=== PATIENT | female | born 1955 | race Caucasian/White ===

== ENCOUNTER → 2019-02-05 | Outpatient (CLI) | payer BC ==
[2019-02-05 13:21] LABS: HCT 41.1 % (34.0-46.0); HGB 13.5 gm/dL (11.4-16.0); MCH 31.2 pg (25.0-35.0); MCHC 32.9 g/dL (31.0-37.0); MCV 94.7 fL (80.0-100.0); Mean Platelet Volume 6.6; Platelet Count 336 k/uL (150-450); RBC 4.34 m/uL (3.80-5.40); RDW 12.8 % (11.5-15.5); WBC 6.5 k/uL (3.8-10.6)
[2019-02-05 13:26] LABS: Albumin 4.2 g/dL (3.5-5.0); Appearance,Urine Cloudy (Clear); Bacteria,Urine Rare /hpf; Bilirubin,Urine Negative (Negative); Blood,Urine Negative (Negative); Calcium 10.2 mg/dL (8.4-10.2); Color,Urine Yellow; Glucose,Urine (UA) Negative (Negative); Hyaline Casts,Urine 28 /lpf (0-2); Ketones,Urine Negative (Negative); Leukocyte Esterase,Urine Negative (Negative); Mucus,Urine Occasional /hpf; Nitrite,Urine Negative (Negative); Potassium 4.1 mmol/L (3.5-5.1); Protein,Urine Negative (Negative); RBC,Urine 1 /hpf (0-5); Specific Gravity,Urine 1.022 (1.001-1.035); Squamous Epithelial Cell,Urine 7 /hpf (0-4); Total Bilirubin 0.6 mg/dL (0.2-1.3); Total Protein 7.1 g/dL (6.3-8.2); Urobilinogen,Urine <2.0 mg/dL (<2.0); WBC,Urine 1 /hpf (0-5)
[2019-02-05 13:27] LABS: INR 0.9 (<1.2); Partial Thromboplastin Time 24.1 sec (22.0-30.0); Prothrombin Time 9.7 sec (9.0-12.0)
== END | disposition home or self-care (01) ==
LOC: LABWHC1 11:58
PROVIDERS: ATTEND Orthopaedic Surgery Sports Medicine
DX: Z01.812 Encounter for preprocedural laboratory examination (principal); M17.12 Unilateral primary osteoarthritis, left knee
CPT/HCPCS: 36415; 80053; 81001; 85027; 85610; 85730; 87070

== ENCOUNTER 2019-02-14 13:24 | Day surgery (SDC) | payer BC ==
[2019-02-06 15:15] VITALS: BMI 35.7
[~2019-02-14 13:24] MED LIST: ACETAMINOPHEN TAB 500 MG TAB PO ONE; HYDROmorphone 0.5 MG/0.5 ML SYRINGE IVP PRN; LIDOCAINE 1% 20 ML VIAL (10MG/ML) FOR IV START INTRADERMA PRN; ONDANSETRON 4 MG/2 ML VIAL IVP ONE; ROPIVACAINE 246.25 MG, EPINEPHrine 0.5 MG, KETOROLAC 30 MG, cloNIDine HCL/PF 80 MCG, WA... MISCELLANE ONE; TRANEXAMIC ACID 1,000 MG in SODIUM CHLORIDE 0.9% 100 ML IVPB ONE
[2019-02-14] MEDS ORDERED: LIDOCAINE 1% 20 ML VIAL (10MG/ML) FOR IV START INTRADERMA ONE (14:16)
[2019-02-14] MEDS: LACTATED RINGERS 1,000 ML IV SCH (14:16)
[2019-02-14] MEDS ORDERED: SCOPOLAMINE 1.5MG/72HR PATCH TRANSDERM ONE (14:23)
[2019-02-14] MEDS ORDERED: MORPHINE SULFATE (PF) 0.3 MG/0.3 ML SYR ONE (15:07)
[2019-02-14] MEDS ORDERED: PROPOFOL 10 MG/ML 20 ML VIAL IV ONE (15:07)
[2019-02-14] MEDS ORDERED: fentaNYL (PF) 50 MCG/ML 2 ML AMP ONE (15:07)
[2019-02-14] MEDS ORDERED: LIDOCAINE 1% INJ 10MG/ML (20 ML MDV) ONE (15:07)
[2019-02-14] MEDS ORDERED: MIDAZOLAM 2 MG/2 ML VIAL ONE (15:07)
[2019-02-14] MEDS ORDERED: KETAMINE 10 MG/ML 20 ML VIAL ONE (15:07)
[2019-02-14] MEDS ORDERED: hydrOXYzine PAMOATE 25 MG CAP PO PRN (15:20)
[2019-02-14] MEDS ORDERED: MAGNESIUM HYDROXIDE 2,400 MG/10 ML CUP PO PRN (15:20)
[2019-02-14] MEDS ORDERED: HYDROcodone/APAP 10-325MG 1 EACH TAB PO PRN (15:20)
[2019-02-14] MEDS ORDERED: HYDROmorphone 0.5 MG/0.5 ML SYRINGE IVP PRN ×2 (15:20)
[2019-02-14] MEDS ORDERED: NALOXONE 0.4 MG/ML 1 ML VIAL IV PRN (15:20)
[2019-02-14] MEDS ORDERED: NA PHOS,M-B/NA PHOS,DI-BA 133 ML ENEMA RECTAL PRN (15:20)
[2019-02-14] MEDS ORDERED: traMADol 50 MG TAB PO PRN (15:20)
[2019-02-14] MEDS ORDERED: ONDANSETRON 4 MG/2 ML VIAL IVP PRN (15:20)
[2019-02-14] MEDS ORDERED: BISACODYL 10 MG SUPP RECTAL PRN (15:20)
[2019-02-14] MEDS ORDERED: TEMAZEPAM 15 MG CAP PO PRN (15:20)
[2019-02-14] MEDS ORDERED: HYDROmorphone 1 MG/ML 1 ML SYRINGE IVP PRN (15:20)
[2019-02-14] MEDS ORDERED: DIAZEPAM 5 MG TAB PO PRN (15:20)
[2019-02-14] MEDS ORDERED: HYDROcodone/APAP 5-325MG 1 EACH TAB PO PRN (15:20)
[2019-02-14] MEDS ORDERED: LACTATED RINGERS 1,000 ML IV ONE (16:04)
--- NOTE | 2019-02-14 17:21 | XR ---
EXAMINATION TYPE: XR knee limited LT DATE OF EXAM: 02/14/2019 COMPARISON: NONE HISTORY: Postop knee surgery TECHNIQUE: 2 view FINDINGS: There is a left knee prosthesis. Components are in anatomic position. IMPRESSION: No complicating process seen.
--- NOTE | 2019-02-14 20:03 | OP ---
OPERATIVE REPORT DATE OF PROCEDURE: 02/14/2019. SURGEON: Marlo Jackson MD. COMMODITY DIRECTOR: Abel MONTGOMERY. PREOPERATIVE DIAGNOSIS: Left knee osteoarthrosis. POSTOPERATIVE DIAGNOSIS: Left knee osteoarthrosis. OPERATION: Left total knee arthroplasty. ANESTHESIA: Spinal with sedation. ESTIMATED BLOOD LOSS: 100 mL. TOURNIQUET TIME: 28 minutes at 250 mmHg. COMPLICATIONS: None apparent. DRAINS: None. DISPOSITION: Post-Anesthesia Care Unit. INDICATIONS: Carolyne is a very pleasant 63-year-old female with longstanding history of left knee pain. History and physical examination are consist with advanced left knee osteoarthrosis. She has been through significant nonoperative management up to this point. Further treatment options were discussed and she decided to go forward with left total knee arthroplasty. The risks of the procedure were discussed with her in detail. These risks include but are not limited to risk of infection, nerve damage, bleeding, pain and risk of deep vein thrombosis which could lead to fatal pulmonary embolism. There is also risk of loosening of the implant which could require revision operation. The patient understands these risks. All of her questions were answered to her satisfaction. Appropriate informed consent was obtained. DESCRIPTION OF PROCEDURE: The patient was identified in the preoperative holding area. Surgical site was marked by both the patient and myself. She was given 2 grams of Ancef IV for prophylactic purposes. She was then transferred to the operative suite. She was placed supine on the operative table. Spinal anesthetic was then administered and dosed per the anesthesia department without apparent complication. Examination under anesthesia was then performed. The patient was 2-3 degrees shy of full extension. She had 100 degrees of flexion, and the medial collateral ligament, lateral collateral ligament and posterior cruciate ligaments were stable. Tourniquet was then placed high on the left upper thigh, well padded in preparation for surgery. The patient's left lower extremity was then prepped and draped in the usual sterile fashion. Standard surgical pause was undertaken to ensure that we were operating on the correct site and that appropriate preoperative antibiotics had been given. All staff in the room were in agreement and we proceeded. The outlines of the patella were marked with a surgical pen. A planned 12 cm vertical incision centered over the patella was marked with a surgical pen. Leg was then exsanguinated with an Esmarch dressing. The knee was then flexed and the tourniquet was inflated to 250 mmHg. The total tourniquet time for the procedure was 28 minutes. Incision was then made with a 10 blade scalpel. Dissection was carried down sharply to the overlying fascia. Great care was taken to minimize the skin flaps. The knee was then exposed using a standard medial parapatellar approach. A small cuff of quadriceps tendon was left for suturing. She was in a bit of varus preoperatively. A standard medial release was then made. Superficial medial collateral ligament was dissected off the bone around to the posterior aspect of the proximal tibia. The medial meniscus was then excised as well. The lateral meniscus was also released anteriorly. The leg was then externally rotated. The patella was everted. The knee was flexed. The retractors were then placed to protect the collateral ligaments. I then proceeded to remove the infrapatellar fat pad. This was excised sharply tangentially with the fibers of the patellar tendon. I then proceeded to remove the peripheral osteophytes. This was done with a rongeur. I then proceeded with distal femoral resection. She did have near-full extension. A planned 9 mm resection was then done. The femoral canal was then entered in the midline of the femur approximately 10 mm anterior to the origin of the posterior cruciate ligament. The josette was then advanced down the center of the femur and placed intramedullary. Based on the preoperative radiographs, the angle between the anatomic and mechanical axis of the femur was approximately 4-5 degrees. The valgus angle of the distal femoral cutting guide was then set at 4 degrees for the left knee. This femoral cutting guide was then advanced over the intramedullary josette. This was seated firmly against the femur. I then, as mentioned, planned to take 9 mm off the distal femur. The cutting block was then secured onto the femur with pins. The jig was then removed. The distal femoral cut was made through the slot of the block. The pins were then removed. The distal femoral cutting block was removed. The accuracy of the distal femoral cuts was checked with 2 flat bars. I then proceeded with femoral sizing. The posterior referencing sizing guide was held firmly against the resected distal surface of the femur. Posterior condyles were resting on the posterior plane of the guide. The sizing stylus was then placed onto the anterior femur. The size was measured as a size 7. I then assessed for femoral rotation. The plan was for 3 degrees of external rotation. Three degrees of external rotation was placed onto the jig. These holes were then marked. I then confirmed the rotation by 3 separate methods. This was done using the epicondylar axis as well as Whitesides line and posterior referencing. It was deemed that the external rotation was proper. I then went forward with placing the femoral cutting block. This was placed over the previously placed pin holes. The Ry wing was then placed onto the anterior slots to ensure that we would not notch the anterior femur with the anterior femoral cut. I then proceeded with the anterior femoral cut. This was flush with the anterior cortex of the femur. Posterior cuts were then made followed by the anterior chamfer cut, then the posterior chamfer cut. The cutting block was then removed. Throughout the resection, the collateral ligaments were protected with retractors. I then placed a trial size 7 femur. It was slightly wide but it fit very nicely and it fit flush with the distal end of the femur. The holes were then made. I then proceeded with the tibial cut. I planned for a cruciate-retaining knee. The guide was placed and set for varus, valgus and for slope. The height was set for an approximate 2 mm resection from the medial tibial plateau, which was the lower side. I was happy with the alignment and the amount of resection. The cutting block was then pinned to the proximal tibia. The alignment josette was removed. The proximal tibia was resected with a reciprocating saw. Again this was done with retractors protecting the collateral ligaments as well as the posterior cruciate ligament. I then proceeded to evaluate the flexion and extension gaps. A 10 mm block was then placed. The flexion and extension gaps were equal. I then proceeded with resection of the posterior osteophytes. She had very minimal posterior osteophytes. This was done with a curved osteotome. This resected the posterior osteophytes, and posterior capsule stripping was also done off the posterior aspect of the femur at this time. The osteophytes were then removed. I then proceeded with resection of the patella. The thickness of the patella was measured using the caliper. The thickness was 22 mm. The thickness of the anticipated patellar dome was taken into account. Resection was then performed and confirmed to be equal in 4 quadrants using a caliper. Approximately 14 mm of bone remained after the resection. A 32 x 8.5 standard patellar trial was then placed. The holes were drilled and the trial was then placed. I then proceeded with sizing the tibial plate. A size D tibial plate fit very nicely. I then placed the trial femur and the tibial tray and the patellar button. A 10 mm trial tibial insert was also placed. The components fit very nicely. She had full extension and flexion. The extension and flexion gaps were equal and stable to both varus and valgus stress. The patella tracked appropriately. Tibial tray rotation was then marked with a Bovie. This was externally rotated properly. I then proceeded with tibial preparation. I first drilled the femoral holes and removed the femoral component. Tibial tray was then set for proper external rotation as well as mediolateral placement onto the tibia. It was then pinned into place. I then proceeded with punching the keel. I then decided to proceed with cementing of all of our components. The knee was thoroughly irrigated with sterile saline solution via pulse lavage. The lateral geniculate artery was identified and cauterized. All blood was removed from the bone of the tibia, femur and patella with pulse lavage. I then proceed with cementing. Two packs of antibiotic bone cement were prepared on the back table by the neurosurgical nurse. I then proceeded with cementing the tibia first. Cement was impacted into the keel as well as deeply seated in the bone. A second coat of cement was then placed. The tibia was then impacted into place. Excess cement was removed with Cornel's and jokers. I then proceed with cementing the femoral component. The femoral component was also cemented using standard technique. Excess cement was removed. A 10 mm trial insert was then placed into the knee. It was brought into full extension with a constant axial load placed until the cement had hardened. The patellar component was then cemented. This was held firmly with a compressive device until the cement had dried. When the cement had dried, the knee was taken out of extension. All excess cement was removed from around the prosthesis. I then trialed the knee with a 10 mm insert. The flexion and extension gaps were appropriate. I then trialed with an 11 mm insert. The flexion and extension gaps felt better. The knee was stable. It came into full extension. I decided to go forward with an 11 mm cross-linked cruciate-retaining tibial insert. Polyethylene was then placed onto the tibial tray and locked into place. The knee was then reduced. The knee was again further irrigated with sterile saline solution with antibiotic added. The tourniquet was then deflated. Total tourniquet time for the procedure was 28 minutes at 250 mmHg of mercury. Final components were a Jeet Persona size 7 narrow cruciate-retaining femoral component, a size D tibial tray, an 11 mm medial-congruent cruciate-retaining polyethylene insert, and a 32 x 8.5 mm patella. I then proceeded with closure. Again the knee was thoroughly irrigated. The quadriceps tendon and the medial retinaculum were reapproximated with #2 Ethibond suture. The extensor mechanism was then closed with a running #2 Quill suture. Subcutaneous tissues were closed with 2-0 Vicryl interrupted suture. The skin was closed with a running 3-0 Quill suture. Dermabond was applied to the incision. Sterile compressive dressings were then applied. All sponge and needle counts were deemed correct prior to closure. The patient tolerated the procedure without apparent complication. She was transferred to the recovery room in stable condition. MMODL / IJN: [id number] /
[2019-02-14] MEDS: ASPIRIN 325 MG TAB PO SCH (20:20)
[2019-02-14] MEDS ORDERED: SENNOSIDES-DOCUSATE SODIUM 1 EACH TAB PO SCH (21:00)
[2019-02-14] MEDS ORDERED: LEVOTHYROXINE SODIUM 13 MCG PO SCH (23:00)
[2019-02-15 02:32] VITALS: TEMP 98.8
[2019-02-15] MEDS: LACTATED RINGERS 1,000 ML IV SCH (04:04)
[2019-02-15 07:04] LABS: Basophils % (A) 0 %; Eosinophils # (A) 0.1 k/uL (0-0.7); Eosinophils % (A) 1 %; HCT 36.7 % (34.0-46.0); HGB 11.9 gm/dL (11.4-16.0); Lymphocytes # (A) 1.1 k/uL (1.0-4.8); Lymphocytes % (A) 11 %; MCH 30.5 pg (25.0-35.0); MCHC 32.5 g/dL (31.0-37.0); MCV 93.9 fL (80.0-100.0); Mean Platelet Volume 6.7; Monocytes # (A) 0.4 k/uL (0-1.0); Monocytes % (A) 4 %; Neutrophils # (A) 8.5 k/uL (1.3-7.7); Neutrophils % (A) 83 %; Platelet Count 300 k/uL (150-450); RBC 3.91 m/uL (3.80-5.40); RDW 12.7 % (11.5-15.5); WBC 10.2 k/uL (3.8-10.6)
[2019-02-15 07:16] LABS: Calcium 8.8 mg/dL (8.4-10.2); Potassium 3.5 mmol/L (3.5-5.1)
[2019-02-15 08:13] VITALS: BP 97/53; PULSE 58; RESP 15
--- NOTE | 2019-02-15 08:15 | P.PN ---
Progress Note - Text 02/15 700am 63-year-old female status post total knee replacement by Dr. Jackson. Patient had a spinal anesthetic with Duramorph for postop pain control, patient seen this morning with a VAS of 0 no complaints of nausea vomiting . She does have complains of pruritus which is subsided by the end of the day
[2019-02-15] MEDS ORDERED: CALCIUM CARB-VIT D 500MG-200UN 1 EACH TAB PO SCH (09:00)
[2019-02-15] MEDS ORDERED: PROPRANOLOL HCL 80 MG PO SCH (09:00)
[2019-02-15] MEDS ORDERED: CYANOCOBALAMIN 500 MCG TAB PO SCH (09:00)
[2019-02-15] MEDS ORDERED: ACETAMINOPHEN TAB 325 MG TAB PO PRN (09:08)
[2019-02-15] MEDS: ASPIRIN 325 MG TAB PO SCH (09:18)
--- NOTE | 2019-02-15 09:32 | P.DS ---
Providers Expected date of discharge: 02/15/19 Attending physician: Marlo Jackson Consults: 02/14/19 15:20 Consult Physician Routine Consulting Provider: Marizol Pena Consult Reason/Comments: post op medical management Do you want consulting provider notified?: Yes Primary care physician: West Cantu - Discharge Diagnosis(es) (1) Osteoarthritis of left knee Patient was admitted to the OR on 02/14/2019 to undergo a left total knee arthroplasty. She had failed conservative measures an outpatient and desired to proceed with elective surgery after given informed consent. She underwent the above procedure which she tolerated well without complication. Postoperative hospital course has remained without complication. On day of discharge she is afebrile, vital signs stable, labs within acceptable ranges, tolerating by mouth meds and diet, voiding without difficulty, positive flatus, denies abdominal pain or calf pain, pain is controlled on oral pain medication and has no new complaints. Wound is benign, neurovascular status is intact, calf is soft and nontender, abdomen soft and nontender. Review of systems is negative for numbness, tingling, fever, chills, chest pain, shortness of breath, nausea, vomiting, dizziness, headaches, slurred speech or other. Current Visit: Yes Status: Acute Priority: Medium (2) Status post total left knee replacement Current Visit: Yes Status: Acute Priority: Medium Procedures: Left TKA Patient Condition at Discharge: Good Plan - Discharge Summary Discharge Rx Participant: Yes New Discharge Prescriptions: New Aspirin 325 mg PO BID #60 tab Docusate [Colace] 100 mg PO BID #60 capsule HYDROcodone/APAP 7.5-325MG [[place] 7.5-325] 1 - 2 each PO Q6HR PRN #56 tab PRN Reason: Pain No Action Estrogens, Conjugated [Premarin] 0.3 mg PO DAILY Diclofenac Sodium [Diclofenac Sodium ER] 100 mg PO DAILY Propranolol HCl 80 mg PO QAM Hydrochlorothiazide 25 mg PO BID Levothyroxine Sodium [Tirosint] 13 mcg PO HS Aspirin [Adult Low Dose Aspirin EC] 81 mg PO DAILY Cyanocobalamin (Vitamin B-12) [Vitamin B-12] 1,000 mcg PO DAILY Calcium Carbonate/Vitamin D3 [Calcium 500-Vit D3 200 Tablet] 1 each PO DAILY Fluticasone Nasal [place] [Flonase Nasal [place]] 1 spray EA NOSTRIL HS Discharge Medication List Aspirin [Adult Low Dose Aspirin EC] 81 mg PO DAILY 08/13/19 [History] Calcium Carbonate/Vitamin D3 [Calcium 500-Vit D3 200 Tablet] 1 each PO DAILY 02/06/19 [History] Cyanocobalamin (Vitamin B-12) [Vitamin B-12] 1,000 mcg PO DAILY 02/06/19 [History] Diclofenac Sodium [Diclofenac Sodium ER] 100 mg PO DAILY 02/06/19 [History] Estrogens, Conjugated [Premarin] 0.3 mg PO DAILY 02/06/19 [History] Fluticasone Nasal [place] [Flonase Nasal [place]] 1 spray EA NOSTRIL HS 02/06/19 [History] Hydrochlorothiazide 25 mg PO BID 02/06/19 [History] Levothyroxine Sodium [Tirosint] 13 mcg PO HS 02/06/19 [History] Propranolol HCl 80 mg PO QAM 02/06/19 [History] Aspirin 325 mg PO BID #60 tab 02/15/19 [Rx] Docusate [Colace] 100 mg PO BID #60 capsule 02/15/19 [Rx] HYDROcodone/APAP 7.5-325MG [[place] 7.5-325] 1 - 2 each PO Q6HR PRN #56 tab 02/15/19 [Rx] Follow up Appointment(s)/Referral(s): West Cantu MD [Primary Care Provider] - 1 Week Marlo Jackson MD [STAFF PHYSICIAN] - 10 Days Activity/Diet/Wound Care/Special Instructions: Keep wound clean and dry Take meds as directed Follow-up with Dr. Jackson in office Weight bear as tolerated May shower in 3 days if no bleeding Discharge Disposition: HOME WITH HOME HEALTH SERVICES
[2019-02-15] MEDS ORDERED: DOCUSATE 100 MG CAP PO STA (11:51)
[2019-02-15] MEDS ORDERED: MULTIVITAMINS, THERA 1 EACH TAB PO SCH (12:00)
--- NOTE | 2019-02-26 01:39 | P.CONS ---
History of Present Illness - Reason for Consult Consult date: 02/15/19 Medical management - Chief Complaint Left knee total arthroplasty - History of Present Illness Patient is a 63-year-old female with a known history of hypertension, hyperlipidemia, hypothyroidism, migraine headaches and osteoarthritis was admitted to the hospital for left total knee arthroplasty. Patient tolerated the procedure very well. Currently denied any complaints of left knee pain whic h is well controlled with medications. No complaints of nausea vomiting or abdominal pain. No diarrhea or dysuria. Postoperatively patient is hypotensive and blood pressure medications have been on hold. No fever no chills. No headache or dizziness or lightheadedness. Review of Systems Constitutional: Patient denies any fever or chills . No generalized weakness or weight loss. Abdomen: Patient denied nausea vomiting and diarrhea and abdominal pain. Cardiovascular: Patient denies any chest pain or short of breath no palpitations. Respiratory: patient denied any cough is from production. No shortness of breath Neurologic: Patient denied any numbness or tingling headache. Musculoskeletal: Patient denies any complaints of joint swelling or deformity. Skin: Negative Psychiatric: Negative Endocrine: No heat or cold intolerance. No recent weight gain. Genitourinary: No dysuria or hematuria. All other 14 point ROS negative except the above Past Medical History Past Medical History: Hyperlipidemia, Hypertension, Osteoarthritis (OA), Thyroid Disorder Additional Past Medical History / Comment(s): hx migraines, past high BP, History of Any Multi-Drug Resistant Organisms: None Reported Past Surgical History: Hysterectomy, Orthopedic Surgery, Tonsillectomy Additional Past Surgical History / Comment(s): left shoulder rotator cuff and bicep, arthroscopic rt knee surgery, left foot bunionectomy, oral surgery Past Anesthesia/Blood Transfusion Reactions: Motion Sickness Past Psychological History: No Psychological Hx Reported Smoking Status: Former smoker Past Alcohol Use History: Occasional Additional Past Alcohol Use History / Comment(s): smoked from age 14 to age 19, < 1 PPD Past Drug Use History: None Reported - Past Family History Brother(s) Family Medical History: Cancer Medications and Allergies Home Medications Medication Instructions Recorded Confirmed Type Aspirin [Adult Low Dose Aspirin EC] 81 mg PO DAILY 02/06/19 02/06/19 History Calcium Carbonate/Vitamin D3 1 each PO DAILY 02/06/19 02/06/19 History [Calcium 500-Vit D3 200 Tablet] Cyanocobalamin (Vitamin B-12) 1,000 mcg PO DAILY 02/06/19 02/06/19 History [Vitamin B-12] Diclofenac Sodium [Diclofenac 100 mg PO DAILY 02/06/19 02/06/19 History Sodium ER] Estrogens, Conjugated [Premarin] 0.3 mg PO DAILY 02/06/19 02/06/19 History Fluticasone Nasal [place] [Flonase 1 spray EA NOSTRIL HS 02/06/19 02/06/19 History Nasal [place]] Levothyroxine Sodium [Tirosint] 13 mcg PO HS 02/06/19 02/06/19 History Propranolol HCl 80 mg PO QAM 02/06/19 02/14/19 History Aspirin 325 mg PO BID #60 tab 02/15/19 Rx Docusate [Colace] 100 mg PO BID #60 capsule 02/15/19 Rx HYDROcodone/APAP 7.5-325MG [[place] 1 - 2 each PO Q6HR PRN #56 tab 02/15/19 Rx 7.5-325] Allergies Allergy/AdvReac Type Severity Reaction Status Date / Time clarithromycin [From Biaxin] Allergy Rash/Hives Verified 02/06/19 15:01 Penicillins Allergy Rash/Hives Verified 02/06/19 15:01 Sulfa (Sulfonamide Allergy Rash/Hives Verified 02/06/19 15:01 Antibiotics) Physical Exam Vitals: Vital Signs Temp Pulse Pulse Resp BP Pulse Ox 02/15/19 07:00 58 L 15 97/53 91 L 02/15/19 01:36 98.8 F 59 L 18 92/56 94 L 02/14/19 20:20 55 L 122/69 98 02/14/19 20:05 54 L 118/68 95 02/14/19 19:49 54 L 114/70 95 02/14/19 19:34 56 L 123/84 97 02/14/19 19:19 53 L 122/80 97 02/14/19 19:03 49 L 121/80 96 02/14/19 18:49 53 L 121/80 97 02/14/19 18:30 57 L 128/78 94 L 02/14/19 18:15 60 125/71 02/14/19 18:00 97.4 F L 60 14 116/76 96 02/14/19 17:45 60 16 121/72 95 02/14/19 17:30 63 16 120/70 96 02/14/19 17:15 63 16 112/61 96 02/14/19 17:07 98.0 F 72 16 109/61 95 02/14/19 13:50 98.3 F 77 18 148/84 95 Intake and Output 02/14/19 02/15/19 02/15/19 22:59 06:59 14:59 Intake Total 1150 310 236 Output Total 100 200 Balance 1050 110 236 Intake: IV 1150 Intake, IV Titration 310 Amount Lactated Ringers 1,000 ml 260 @ 20 mls/hr IV .Q24H REVA Rx#:[id number] ceFAZolin 2 gm In Sodium 50 Chloride 0.9% 50 ml @ 100 mls/hr IVPB Q8H REVA Rx#: [id number] Oral 236 Output: Urine 200 Estimated Blood Loss 100 PHYSICAL EXAMINATION: Patient is lying in the bed comfortably, no acute distress, awake alert and or iented.. HEENT: Normocephalic. Neck is supple. Pupils reactive. Nostrils clear. Oral cavity is moist. Ears reveal no drainage. Neck reveals no JVD, carotid bruits, or thyromegaly. CHEST EXAMINATION: Trachea is central. Symmetrical expansion. Lung meyers clear to auscultation and percussion. CARDIAC: Normal S1, S2 with no gallops. No murmurs ABDOMEN: Soft. Bowel sounds normal. No organomegaly. No abdominal bruits. Extremities: reveal no edema. No clubbing or cyanosis Neurologically awake, alert, oriented x3 with well-coordinated movements. No focal deficits noted Skin: No rash or skin lesions. Psychiatric: Coperative. Nonsuicidal Musculoskeletal: No joint swelling or deformity. Normal range of motion. Left knee surgical site intact. Results CBC & Chem 7: 02/15/19 06:32 02/15/19 06:32 Labs: Abnormal Lab Results - Last 24 Hours (Table) 02/15/19 02/15/19 Range/Units 06:32 06:32 Neutrophils # 8.5 H (1.3-7.7) k/uL Sodium 135 L (137-145) mmol/L Chloride 95 L (98-107) mmol/L Carbon Dioxide 32 H (22-30) mmol/L BUN 18 H (7-17) mg/dL Creatinine 1.11 H (0.52-1.04) mg/dL Assessment and Plan Assessment: Status post left total knee arthroplasty Hypovolemic hyponatremia Hypertension history. Currently patient is hypotensive likely due to narcotic pain medication and hypovolemic Hypothyroidism Osteoarthritis History of migraine headaches Previous history of smoking Plan: Patient will be continued on pain management and limit narcotic pain medication use. Blood pressure medications have been on hold. Continue propranolol at discharge and hydrochlorothiazide has been held. Continue with other home medications including thyroid supplements. Encourage ambulation and incentive spirometry. Continue with DVT prophylaxis. We'll continue to follow with and further recommendations based on the clinical course. Thank you for your consult. Time with Patient: Greater than 30
== END 2019-02-15 12:15 | disposition home health service (06) ==
LOC: OR 13:24 → EDSTATUS 15:25 → 4SSUR 16:55 → OR 02-15 12:15
PROVIDERS: ATTEND Orthopaedic Surgery Sports Medicine
DX: M17.12 Unilateral primary osteoarthritis, left knee (principal); M25.762 Osteophyte, left knee; E03.9 Hypothyroidism, unspecified; E78.5 Hyperlipidemia, unspecified; I10 Essential (primary) hypertension; Z97.3 Presence of spectacles and contact lenses; R63.5 Abnormal weight gain; Z90.710 Acquired absence of both cervix and uterus; Z82.49 Family history of ischemic heart disease and other diseases of the circulatory system; Z87.891 Personal history of nicotine dependence; Z79.82 Long term (current) use of aspirin; Z79.890 Hormone replacement therapy; Z79.899 Other long term (current) drug therapy; Z91.048 Other nonmedicinal substance allergy status; Z91.011 Allergy to milk products; Z88.0 Allergy status to penicillin; Z88.2 Allergy status to sulfonamides; Z91.018 Allergy to other foods
CPT/HCPCS: 97161; 80048; 85025; 88300; 73560; 27447; C1776; C1713; J2250; J0171; J0690 ×2; J2405; J2001; J2274; J3010; J1885; J2795; J2704; J0735